=== PATIENT | female | born 2000 | race Caucasian/White ===

== ENCOUNTER 2021-07-10 14:52 | Emergency (ER) | payer OTHER ==
[~2021-07-10] VITALS: Ht 167.6 cm; Wt 93.0 kg
[~2021-07-10 14:52] MED LIST: MACROBID100 MG PO
[2021-07-10] MEDS ORDERED: AMOXICILLIN875 MG PO (19:09)
[2021-07-10] MEDS ORDERED: NORCO 5-325 TA1 EACH PO (19:09)
== END 2021-07-10 19:20 | disposition home or self-care (01) ==
LOC: FER 14:52
DX: H66.93 Otitis media, unspecified, bilateral (principal); H72.01 Central perforation of tympanic membrane, right ear; W26.8XXA Contact with other sharp object(s), not elsewhere classified, initial encounter; Y93.E8 Activity, other personal hygiene
CPT/HCPCS: 99282